=== PATIENT | male | born 1985 | race African-American/Black ===

== ENCOUNTER 2021-05-31 09:53 | Emergency (ER) | payer MEDICAID ==
[~2021-05-31] VITALS: Ht 170.2 cm; Wt 79.0 kg
[2021-05-31] MEDS ORDERED: IBUPROFEN 800MG TABLET PO ONE (10:15)
[2021-05-31] MEDS ORDERED: IBUP-2030 MT (11:01)
[2021-05-31 11:21] VITALS: BP 168/102
== END 2021-05-31 11:26 | disposition home or self-care (01) ==
LOC: ER 09:53
DX: M25.572 Pain in left ankle and joints of left foot (principal); Z87.81 Personal history of (healed) traumatic fracture; Z98.890 Other specified postprocedural states
CPT/HCPCS: 73610; 73630; 99284